=== PATIENT | female | born 1970 | race Caucasian/White ===

== ENCOUNTER → 2018-07-15 | Outpatient (CLI) | payer OTHER ==
--- NOTE | 2018-07-15 13:39 | Diagnostic Imaging Report ---
EXAM: BONE MINERAL DENSITY HISTORY: Bone mineralization evaluation COMPARISON: None DISCUSSION: Evaluation of the left hip and lumbar spine was performed utilizing DEXA Hologic bone densitometer. The study is technically adequate. Left hip femoral neck bone mineral density: 0.95 g/cm2, T-score is 1.0, Z-score is 1.6. Left hip total bone mineral density: 1.15 g/cm2, T-score is 1.7, Z-score is 2.1. Lumbar spine total bone mineral density: 1.02 gm/cm2, T-score is -0.2, Z-score is 0.4. Impression: Bone mineralization by WHO Classification is normal, the fracture risk is not increased. Signed by: Dr. Haider Nguyen M.D. on 07/15/2018 1:36 PM
== END ==
LOC: MAMMO 12:11
PROVIDERS: ATTEND Internal Medicine
DX: Z12.31 Encounter for screening mammogram for malignant neoplasm of breast (principal); M89.9 Disorder of bone, unspecified
CPT/HCPCS: 77067; 77080; 81025

== ENCOUNTER 2018-08-06 18:27 | Emergency (ER) | payer OTHER ==
[~2018-08-06] VITALS: Ht 157.5 cm; Wt 108.0 kg
--- OUTSIDE RECORDS SUMMARY | 2018-08-06 18:30 | XMS REPORT ---
Author Author [facility] Address Unknown Phone Unavailable Care Team Providers Care Ferruler Name Role Phone NACHO LARKIN Unavailable Unavailable SYDNIE HICKEY Unavailable Unavailable Problems This patient has no known problems. Allergies, Adverse Reactions, Alerts This patient has no known allergies or adverse reactions. Medications This patient has no known medications. Results Test Description Test Time Test Comments Text Results Atomic Results Result Comments MAMMOGRAPHY DIGITAL SCR BILAT 2018-07-15 14:52:00 [place] [address] Patient Name: TRISHA DAMON MR #: [id number] : 1970 Age/Sex: 48/F Req #: [id number] Adm Physician: Ordered by: NACHO LARKIN MD Report #: [id number] Location: MAMMO Room/Bed: Procedure: [id number] MG/MAMMOGRAPHY DIGITAL SCR BILAT Exam Date: 07/15/18 Exam Time: 1247 REPORT STATUS: Signed #[id number] - [id number] #BILATERAL DIGITAL SCREENING MAMMOGRAM WITH CAD: 07/15/2018 CLINICAL: Routine screening. No prior exams were available for comparison. Current study contains 4 films. There are scattered fibroglandular elements in both breasts. Current study was also evaluated with a Computer Aided Detection (CAD) system. There are benign calcifications in both breasts. There also are post operative findings i n the right breast with a scar marker present. No significant masses, calcifications, or other findings are seen in either breast. IMPRESSION: BENIGN There is no mammographic evidence of malignancy. A 1 year screening mammogram is recommended. The patient will be notified by letter of the results. Yesy Muñoz Jr., D.O. cw/:08/01/2018 10:16:53 [employer] Assessment: Adeola PACHECO)(Becky), [facility] letter sent: Normal Exam Mammogram BI-RADS: 2 Benign Dictated By: YESY MUÑOZ DO 1016 Transcribed By: LEONEL on 08/01/18 1016 COPY TO: NACHO LARKIN MD BONE DXA DUAL ENERGY 2018-07-15 13:35:00 [place] [address] Patient Name: TRISHA DAMON MR #: [id number] : 1970 Age/Sex: 47/F Req #: [id number] Adm Physician: Ordered by: NACHO LARKIN MD Report #: [id number] Location: MAMMO Room/Bed: Procedure: [id number] DX/BONE DXA DUAL ENERGY Exam Date: Exam Time: REPORT STATUS: Signed EXAM: BONE MINERAL DENSITY HISTORY: Bone mineralization evaluation COMPARISON: None DISCUSSION: Evaluation of the left hip and lumbar spine was performed utilizing DEXA Hologic bone densitometer. The study is technically adequate. Left hip femoral neck bone mineral density: 0.95 g/cm2, T-score is 1.0, Z-score is 1.6. Left hip total bone mineral density: 1.15 g/cm2, T-score is 1.7, Z-score is 2.1. Lumbar spine total bone mineral density: 1.02 gm/cm2, T-score is -0.2, Z-score is 0.4. Impression: Bone mineralization by WHO Classification is normal, the fracture risk is not increased. Signed by: Dr. Vu Crawford M.D. on 07/15/2018 1:36 PM Dictated By: VU CRAWFORD MD Transcribed By: DYLAN on 07/15/186 COPY TO: NACHO LARKIN MD POCT-GLUCOSE METER 2016-06-04 11:13:00 POC-GLUCOSE METER (BEAKER) (test djii=2107) 148 mg/dL 70-110 TESTED AT [address] [address] URINE [id number] 12:37:00* Test Item Value Reference Range Comments CULTURE (BEAKER) (test ekkb=8430) ESCHERICHIA COLI >100,000 col/mL Escherichia coli Amikacin (test code=1) Ampicillin + Sulbactam (test code=6) Aztreonam (test code=32) Cefepime (test code=51) Cefoxitin (test code=68) Ceftazidime (test code=27) Ceftriaxone (test code=52) Ertapenem (test code=38) Gentamicin (test code=18) Levofloxacin (test code=22) Meropenem (test code=34) Nitrofurantoin (test code=23) Piperacillin + Tazobactam (test code=29) Tetracycline (test code=2) Tobramycin (test code=25) Trimethoprim + Sulfamethoxazole (test code=47) CULTURE (BEAKER) (test weck=980213) 10-19,000 col/mL Beta-hemolytic streptococcus group B, by serological groupingIf this patient is , please refer to ACOG guidelines for appropriate screening and management of colonized women. BASIC METABOLIC [id number] 18:00:00* Test Item Value Reference Range Comments SODIUM (BEAKER) (test imlm=219) 140 meq/L 136-145 POTASSIUM (BEAKER) (test zpjz=460) 3.4 meq/L 3.5-5.1 CHLORIDE (BEAKER) (test jura=870) 104 meq/L 98-107 CO2 (BEAKER) (test qbgt=324) 26 meq/L 22-29 BLOOD UREA NITROGEN (BEAKER) (test mpte=819) 11 mg/dL 7-21 CREATININE (BEAKER) (test ewhb=131) 0.78 mg/dL 0.57-1.25 GLUCOSE RANDOM (BEAKER) (test zitx=618) 134 mg/dL 70-105 CALCIUM (BEAKER) (test wvfr=559) 9.2 mg/dL 8.4-10.2 EGFR (BEAKER) (test ewpi=4288) 80 mL/min/1.73 sq m ESTIMATED GFR IS NOT ACCURATE CREATININE CLEARANCE IN PREDICTING GLOMERULAR FILTRATION RATE. ESTIMATED GFR IS NOT APPLICABLE FOR DIALYSIS PATIENTS. [id number] 17:45:00* Test Item Value Reference Range Comments PARTIAL THROMBOPLASTIN TIME (BEAKER) (test zxls=517) 27.4 seconds 22.5-36.0 PROTHROMBIN TIME/[id number] 17:44:00* Test Item Value Reference Range Comments PROTIME (BEAKER) (test ygvu=682) 13.2 seconds 11.7-14.7 INR (BEAKER) (test vnhj=002) 1.0 <=5.9 RECOMMENDED COUMADIN/WARFARIN INR THERAPY RANGESSTANDARD DOSE: 2.0 - 3.0 Inclu gabriel: PROPHYLAXIS for venous thrombosis, systemic embolization; TREATMENT for denae ous thrombosis and/or pulmonary embolus.HIGH RISK: Target INR is 2.5-3.5 for pat ients with mechanical heart valves.URINALYSIS W/ [id number] 17:40:00 * Test Item Value Reference Range Comments COLOR (BEAKER) (test oahk=873) [place] CLARITY (BEAKER) (test mnsg=077) Hazy SPECIFIC GRAVITY UA (BEAKER) (test znzl=525) 1.015 1.001-1.035 PH UA (BEAKER) (test xpyz=890) 5.0 5.0-8.0 PROTEIN UA (BEAKER) (test lnio=029) 30 mg/dL Negative GLUCOSE UA (BEAKER) (test vypv=183) Negative Negative KETONES UA (BEAKER) (test lpms=496) Negative Negative BILIRUBIN UA (BEAKER) (test vsdw=620) Negative Negative BLOOD UA (BEAKER) (test uudp=044) Large Negative NITRITE UA (BEAKER) (test jwck=796) Negative Negative LEUKOCYTE ESTERASE UA (BEAKER) (test jzem=367) Large Negative UROBILINOGEN UA (BEAKER) (test sbjb=749) 0.2 mg/dL 0.2-1.0 RBC UA (BEAKER) (test dkzt=520) > /HPF WBC UA (BEAKER) (test raar=088) > /HPF BACTERIA (BEAKER) (test fmmu=329) Occasional SQUAMOUS EPITHELIAL (BEAKER) (test diuo=686) 4 /HPF SOURCE(BEAKER) (test zgdb=5643) SCREEN, [id number] 17:39:00* Test Item Value Reference Range Comments TEST URINE (BEAKER) (test uytw=513) Negative CBC W/PLT COUNT & AUTO [id number] 17:34:00* Test Item Value Reference Range Comments WHITE BLOOD CELL COUNT (BEAKER) (test efki=484) 8.5 K/ L 4.0-10.0 RED BLOOD CELL COUNT (BEAKER) (test mrus=167) 4.23 M/ L 4.00-5.00 HEMOGLOBIN (BEAKER) (test hdqe=593) 13.5 GM/DL 12.0-15.0 HEMATOCRIT (BEAKER) (test tkvj=982) 38.4 % 36.0-45.0 MEAN CORPUSCULAR VOLUME (BEAKER) (test ozdc=334) 90.7 fL 82.0-99.0 MEAN CORPUSCULAR HEMOGLOBIN (BEAKER) (test fllc=492) 31.9 pg 27.0-33.0 MEAN CORPUSCULAR HEMOGLOBIN CONC (BEAKER) (test msqp=366) 35.2 GM/DL 32.0-36.0 RED CELL DISTRIBUTION WIDTH (BEAKER) (test qmmw=212) 12.9 % 10.3-14.2 PLATELET COUNT (BEAKER) (test wylg=160) 268 K/CU MM 150-430 MEAN PLATELET VOLUME (BEAKER) (test qbvt=420) 6.7 fL 6.5-10.5 NUCLEATED RED BLOOD CELLS (BEAKER) (test vpqp=751) 0 /100 WBC 0-0 NEUTROPHILS RELATIVE PERCENT (BEAKER) (test qnyy=478) 62 % LYMPHOCYTES RELATIVE PERCENT (BEAKER) (test sxgz=405) 31 % MONOCYTES RELATIVE PERCENT (BEAKER) (test rzov=644) 5 % EOSINOPHILS RELATIVE PERCENT (BEAKER) (test sslv=059) 2 % BASOPHILS RELATIVE PERCENT (BEAKER) (test pdvk=481) 1 % NEUTROPHILS ABSOLUTE COUNT (BEAKER) (test parv=803) 5.23 K/ L 1.80-8.00 LYMPHOCYTES ABSOLUTE COUNT (BEAKER) (test qytv=912) 2.59 K/ L 1.48-4.50 MONOCYTES ABSOLUTE COUNT (BEAKER) (test lgej=732) 0.39 K/ L 0.00-1.30 EOSINOPHILS ABSOLUTE COUNT (BEAKER) (test hxtk=004) 0.19 K/ L 0.00-0.50 BASOPHILS ABSOLUTE COUNT (BEAKER) (test uhck=110) 0.07 K/ L 0.00-0.20 0.00
--- OUTSIDE RECORDS SUMMARY | 2018-08-06 18:30 | XMS REPORT | Clinical Summary ---
Author Author [facility] Apps[facility]epWe[facility] HospitalScintera Networks Organization [facility] Address Unknown Phone Unavailable Care Team Providers Care Glue Maker Name Role Phone Radha Peters PCP Allergies No Known Allergies Medications End Date Status Medication Sig Dispensed Refills Start Date Active venlafaxine (EFFEXOR-XR) Take 150 mg 0 75 MG 24 hr capsule by mouth daily. Active metFORMIN (GLUCOPHAGE) Take 1,000 mg 0 500 MG tablet by mouth daily. Active losartan (COZAAR) 25 MG Take 25 mg by 0 tablet mouth daily. Active hydroCHLOROthiazide Take 12.5 mg 0 (HYDRODIURIL) 12.5 MG by mouth tablet daily. Active methocarbamol (ROBAXIN) Take 750 mg 0 750 MG tablet by mouth 3 (three) times daily. Active gabapentin (NEURONTIN) Take 300 mg 0 300 MG capsule by mouth 4 (four) times daily. Active atorvastatin (LIPITOR) 80 Take 80 mg by 0 MG tablet mouth daily. Active traZODone (DESYREL) 50 MG Take 50 mg by 0 tablet mouth nightly. Active CYANOCOBALAMIN, VITAMIN Take by 0 B-12, (VITAMIN B-12 ORAL) mouth. Active multivitamin capsule Take 1 0 capsule by mouth daily. Active CALCIUM CARBONATE/VITAMIN Take by 0 D3 (CALCIUM+D ORAL) mouth. Active FERROUS FUMARATE (IRON Take by 0 ORAL) mouth. Active BIOTIN ORAL Take by 0 mouth. Active ciprofloxacin HCl (CIPRO) Take 500 mg 0 500 MG tablet by mouth daily. Active Problems Not on file Social History Date Tobacco Use Types Packs/Day Years Used Never Smoker Alcohol Use Drinks/Week oz/Week Comments Yes rarely Sex Assigned at Date Recorded Not on file Industry Job Start Date Occupation Not on file Not on file Not on file Travel End Travel History Travel Start No recent travel history available. Last Filed Vital Signs Not on file Plan of Treatment Not on file Implants Device Identifier Shelf Expiration Date Model / Serial / Lot Implanted Type Area Manufactur er 10/17/2017 [id number] / / [id number] Set Stent Injection 6x24cm Uro Stent Left: Ureter BOSTON [id number] - [id number] SCI:ONCOLO Implanted: Qty: 1 on 06/04/2016 by MARIELLA Santos, Fawad Arenas MD Results Not on fileafter 08/05/2017 Insurance Payer Benefit Subscriber ID Type Phone Address Plan / Group AETNA - MGD CARE AETNA HMO xxxxxxxxx HMO/POS POS QPOS
--- OUTSIDE RECORDS SUMMARY | 2018-08-06 18:30 | XMS REPORT | Clinical Summary ---
Author Author [facility] [employer] Organization [facility] Address Unknown Phone Unavailable Care Team Providers Care Electronic Assembler Name Role Phone Nereyda Riddle MD PCP Allergies No Known Allergies Medications End Date Status Medication Sig Dispensed Refills Start Date Active venlafaxine (EFFEXOR) 75 Take 75 mg by 0 MG tablet mouth 2 (two) times a day. Active metFORMIN (GLUCOPHAGE) Take 500 mg 0 500 mg tablet by mouth 2 (two) times a day with meals. Active losartan (COZAAR) 25 MG Take 25 mg by 0 tablet mouth daily. Active hydroCHLOROthiazide Take 12.5 mg 0 (HYDRODIURIL) 12.5 MG by mouth tablet daily. Active gabapentin (NEURONTIN) Take 300 mg 0 300 mg capsule by mouth 3 (three) times a day. Active methocarbamol (ROBAXIN) Take 750 mg 0 750 MG tablet by mouth 4 (four) times a day. Active HYDROcodone-acetaminophen Take 1 tablet 0 (NORCO) 7.5-325 mg per by mouth tablet every 6 (six) hours as needed for moderate pain. Active FERROUS SULFATE, DRIED Take by 0 (IRON, DRIED, ORAL) mouth. Active biotin 1 mg tablet Take 1,000 0 mcg by mouth 3 (three) times a day. Active multivitamin with Take 1 tablet 0 minerals tablet by mouth daily. Active ASCORBIC ACID/VITAMIN Take by 0 E/BIOTIN (HAIR, SKIN, mouth. NAILS WITH BIOTIN ORAL) Active CALCIUM CARBONATE/VITAMIN Take by 0 D3 (CALTRATE 600 + D mouth. ORAL) Active cyanocobalamin 250 MCG Take 250 mcg 0 tablet by mouth daily. Active nitrofurantoin Take 100 mg 0 (MACRODANTIN) 100 MG by mouth 2 capsule (two) times a day. Active atorvastatin (LIPITOR) 80 Take 80 mg by 0 MG tablet mouth daily. Active Problems Not on file Social History Date Tobacco Use Types Packs/Day Years Used Never Smoker Alcohol Use Drinks/Week oz/Week Comments No Sex Assigned at Date Recorded Not on file Industry Job Start Date Occupation Not on file Not on file Not on file Travel End Travel History Travel Start No recent travel history available. Last Filed Vital Signs Not on file Plan of Treatment Health Maintenance Due Date Last Done Comments INFLUENZA VACCINE 09/11/2018 Results Not on fileafter 08/05/2017 Insurance Type Payer Benefit Subscriber ID Effective Phone Address Plan / Dates Group PPO AETNA AETNA PPO xxxxxxxxx 2012-P OPEN resent CHOICE HMO AETNA AETNA xxxxxxxxx 2012-P HMO,POS,EP resent O, MC/EC Advance Directives Patient has advance care planning documents on file. For more information, sabrina potts contact: Alex Machado [address] [place] [address]
[2018-08-06] MEDS ORDERED: KETOROLAC TROMETHAMINE 60 MG/2 ML VIAL IM ONE (21:30)
--- NOTE | 2018-08-06 21:30 | Diagnostic Imaging Report ---
EXAMINATION: CT of the abdomen and pelvis without contrast. TECHNIQUE: Helical CT images of the abdomen and pelvis were performed from the lung bases to the lesser trochanters. No intravenous contrast was given per renal stone protocol. Coronal and sagittal reformatted images were obtained. Dose modulation, iterative reconstruction, and/or weight based adjustment of the mA/kV was utilized to reduce the radiation dose to as low as reasonably achievable. COMPARISON: None. CLINICAL HISTORY:Flank pain DISCUSSION: ABSENCE OF INTRAVENOUS CONTRAST DECREASES SENSITIVITY FOR DETECTION OF FOCAL LESIONS AND VASCULAR PATHOLOGY. ABDOMEN/PELVIS: LOWER THORAX: Unremarkable. HEPATOBILIARY:No focal hepatic lesions. No biliary ductal dilation. The gallbladder is normal. SPLEEN: No splenomegaly. PANCREAS: No focal masses or ductal dilatation. ADRENALS: No adrenal nodules. KIDNEYS/URETERS: No hydronephrosis, stones, or solid mass lesions. PELVIC ORGANS/BLADDER: The bladder is normal. PERITONEUM/RETROPERITONEUM: No free air or fluid. LYMPH NODES: No intra-abdominal,retroperitoneal, pelvic or inguinal lymphadenopathy. VESSELS: Limited evaluation. GI TRACT: Postsurgical change to the stomach. No obstruction. Appendix normal. BONES AND SOFT TISSUES: Pars defect L5. Lower anterior abdominal wall hernia containing fat and loop of small bowel. IMPRESSION: No acute CT finding. Signed by: Dr. Haider Nguyen M.D. on 08/06/2018 9:27 PM
[2018-08-20] MEDS ORDERED: VENLAFAXINE HCL75 MG PO (13:27)
[2018-08-20] MEDS ORDERED: GABAPENTIN300 MG PO (13:28)
[2018-08-20] MEDS ORDERED: METHOCARBAMOL750 MG PO (13:28)
[2018-08-20] MEDS ORDERED: METFORMIN HCL500 MG PO (13:29)
[2018-08-20] MEDS ORDERED: GLIMEPIRIDE2 MG PO (13:29)
[2018-08-20] MEDS ORDERED: HYDROCHLOROTHIA25 MG PO (13:30)
[2018-08-20] MEDS ORDERED: MICARDIS40 MG PO (13:30)
[2018-08-20] MEDS ORDERED: FERROUS SULFAT325 M1 PO (13:31)
[2018-08-20] MEDS ORDERED: HYDROXYZINE HCL25 MG PO (13:31)
[2018-08-20] MEDS ORDERED: TRAZODONE HCL50 MG PO (13:31)
[2018-08-20] MEDS ORDERED: B COMPLEX1 EACH PO (13:32)
[2018-08-20] MEDS ORDERED: BIOTIN1 MG PO (13:32)
[2018-08-20] MEDS ORDERED: MULTI-VITAMIN1 EACH PO (13:33)
[2018-08-20] MEDS ORDERED: CALCIUM + VITA1 EACH PO (13:33)
== END 2018-08-06 21:29 | disposition home or self-care (01) ==
LOC: FSED 18:27
DX: S39.012A Strain of muscle, fascia and tendon of lower back, initial encounter (principal); G89.29 Other chronic pain; I10 Essential (primary) hypertension; E11.9 Type 2 diabetes mellitus without complications; X58.XXXA Exposure to other specified factors, initial encounter
CPT/HCPCS: 74176; 81003; 81025; 99283; J1885

== ENCOUNTER → 2018-08-23 | Day surgery (SDC) | payer OTHER ==
[~2018-08-23] MED LIST: B COMPLEX1 EACH PO; BIOTIN1 MG PO; CALCIUM + VITA1 EACH PO; FENTANYL CITRATE/PF 100MCG/2 ML INJ ONE; FERROUS SULFAT325 M1 PO; GABAPENTIN300 MG PO; GLIMEPIRIDE2 MG PO; HYDROCHLOROTHIA25 MG PO; HYDROXYZINE HCL25 MG PO; HYOSCYAMINE 0.125 MG TAB ONE; METFORMIN HCL500 MG PO; METHOCARBAMOL750 MG PO; MICARDIS40 MG PO; MIDAZOLAM HCL 2 MG/2 ML VIAL ONE; MULTI-VITAMIN1 EACH PO; TRAZODONE HCL50 MG PO; VENLAFAXINE HCL75 MG PO
--- OUTSIDE RECORDS SUMMARY | 2018-08-23 11:26 | XMS REPORT | Clinical Summary ---
Author Author [facility]itelNorth Canyon Medical CenterDidLog Organization [facility] Address Unknown Phone Unavailable Care Team Providers Care Fitness Manager Name Role Phone Radha Peters PCP Allergies [...] Lot Implanted Type Area Manufactur er 10/17/2017 [id number] / / [id number] Set Stent Injection 6x24cm Uro Stent Left: Ureter [employer]ON [id number] - [id number] SCI:ONCOLO Implanted: Qty: 1 on 06/04/2016 by MARIELLA Santos, Fawad Arenas MD Results Not on fileafter 08/22/2017 Insurance Payer Benefit Subscriber ID Type Phone Address Plan / Group AETNA - MGD CARE AETNA HMO xxxxxxxxx HMO/POS POS QPOS
--- OUTSIDE RECORDS SUMMARY | 2018-08-23 11:26 | XMS REPORT | Clinical Summary ---
Author Author [facility] [employer] Organization [facility] Address Unknown Phone Unavailable Care Team Providers Care Forest Fire Prevention Manager Name Role Phone Nereyda Riddle MD PCP [...] INFLUENZA VACCINE 09/11/2018 Results Not on fileafter 08/22/2017 Insurance Type Payer Benefit Subscriber ID Effective Phone Address Plan / Dates Group PPO AETNA AETNA PPO xxxxxxxxx 2012-P OPEN resent CHOICE HMO AETNA AETNA xxxxxxxxx 2012-P HMO,POS,EP resent O, MC/EC Advance Directives Patient has advance care planning documents on file. For more information, sabrina potts contact: Alex Machado [address] [place] [address]
[2018-08-23 12:43] LABS: WBC,FECAL (FECAL LACTOFERRIN) POSITIVE (NEGATIVE)
--- NOTE | 2018-08-23 12:59 | Operative Report ---
DATE OF PROCEDURE: 08/23/2018 SURGEON: Camacho Powell MD PROCEDURES: EGD with biopsies and colonoscopy with biopsies. INDICATIONS FOR EGD: Acid reflux, bloating. INDICATIONS FOR COLONOSCOPY: Lower abdominal pain, diarrhea, intermittent history of colon polyps. MEDICATIONS: The patient was done under MAC, please see anesthesiologist's note. PROCEDURE IN DETAIL: With the patient in left lateral decubitus position, a flexible fiberoptic Olympus gastroscope was introduced into the esophagus under direct visualization without any difficulty. There was some patchy erythema noted in distal esophagus. The scope was then advanced with ease into the stomach and the patient is status post gastric sleeve. The mucosa overlying the body as well as the antrum revealed some diffuse erythema and moderate edema and biopsies were obtained, sent to stain for H. pylori. The pylorus was of normal contour and shape, it was intubated with ease and the scope was advanced all the way to the second portion of the duodenum. The scope was then withdrawn slowly and biopsies were obtained from the second portion as well as the duodenal bulb to rule out sprue. The scope was then withdrawn back into the stomach and retroflexed and some postoperative changes were noted. The scope was then straightened out, it was subsequently withdrawn, and the patient tolerated the procedure well. IMPRESSION: 1. Distal esophagitis. 2. Status post gastric sleeve. Gastritis biopsied. Biopsies sent to stain for Helicobacter pylori. 3. Rule out sprue. PLAN: Follow up histology. Initiate Protonix 40 mg one p.o. q.a.m. before meals. COLONOSCOPY: The patient was then turned around and after adequate lubrication of the anal canal, a flexible fiberoptic Olympus colonoscope was inserted into the rectum with ease and advanced all the way to the cecum. Mucosa overlying the cecum appeared to be within normal limits. The ileocecal valve was intubated and the scope was advanced into the terminal ileum. Biopsies were obtained. The scope was then withdrawn back into the colon. It was then withdrawn slowly and mucosa overlying the ascending and the transverse appeared to be within normal limits. Mild inflammatory changes were noted in the descending, sigmoid as well as the rectum and random biopsies were obtained. The scope was then retroflexed into the distal rectum and the area around the dentate line was examined carefully and appeared to be within normal limits. The scope was then straightened out, it was subsequently withdrawn after securing an adequate stool specimen that was sent for the appropriate stool studies. The patient tolerated the procedure well. IMPRESSION: 1. Mild patchy left-sided colitis. 2. Proctitis, low-grade. PLAN: Follow up histology. Follow up stool studies. Initiate Bentyl 10 mg one p.o. t.i.d. Camacho Powell MD [facility] /[id number] cc: Joe Pérez MD
[2018-08-23 15:16] LABS: C DIFFICILE TOXIN A&B AMP PROB NEGATIVE (NEGATIVE)
--- OUTSIDE RECORDS SUMMARY | 2018-08-25 15:07 | XMS REPORT | Clinical Summary ---
Author Author ROBLES [facility] RebelSyringa General HospitalSynergos Organization [facility] Address Unknown Phone Unavailable Care Team Providers Care Tint Layer Name Role Phone Radha Peters PCP Allergies [...] Lot Implanted Type Area Manufactur er 10/17/2017 [id number] / / [id number] Set Stent Injection 6x24cm Uro Stent Left: Ureter [employer]ON [id number] - [id number] [employer]:ONCOLO Implanted: Qty: 1 on 06/04/2016 by MARIELLA Santos, Fawad Arenas MD Results Not on fileafter 08/24/2017 Insurance Payer Benefit Subscriber ID Type Phone Address Plan / Group AETNA - MGD CARE AETNA HMO xxxxxxxxx HMO/POS POS QPOS
--- OUTSIDE RECORDS SUMMARY | 2018-08-25 15:07 | XMS REPORT | Clinical Summary ---
Author Author [facility] Organization [facility] Address Unknown Phone Unavailable Care Team Providers Care Credit Collection Associate Name Role Phone Nereyda Riddle MD PCP [...] INFLUENZA VACCINE 09/11/2018 Results Not on fileafter 08/24/2017 Insurance Type Payer Benefit Subscriber ID Effective Phone Address Plan / Dates Group PPO AETNA AETNA PPO xxxxxxxxx 2012-P OPEN resent CHOICE HMO AETNA AETNA xxxxxxxxx 2012-P HMO,POS,EP resent O, MC/EC Advance Directives Patient has advance care planning documents on file. For more information, sabrina potts contact: Alex Machado [address] [place] [address]
== END | disposition home or self-care (01) ==
LOC: OR 08:51
PROVIDERS: ATTEND Internal Medicine Gastroenterology
DX: K29.70 Gastritis, unspecified, without bleeding (principal); K51.50 Left sided colitis without complications; K21.9 Gastro-esophageal reflux disease without esophagitis; K20.9 Esophagitis, unspecified; K44.9 Diaphragmatic hernia without obstruction or gangrene; Z98.84 Bariatric surgery status; K62.89 Other specified diseases of anus and rectum; E66.01 Morbid (severe) obesity due to excess calories; E11.9 Type 2 diabetes mellitus without complications; F32.9 Major depressive disorder, single episode, unspecified; F41.9 Anxiety disorder, unspecified; Z01.810 Encounter for preprocedural cardiovascular examination; Z79.84 Long term (current) use of oral hypoglycemic drugs; Z68.30 Body mass index [BMI] 30.0-30.9, adult; Z80.0 Family history of malignant neoplasm of digestive organs
CPT/HCPCS: 36415; 43239; 45380; 81025; 82948; 83630; 83993; 87045; 87177; 87328; 87493; 93005; J2250; J3010

== ENCOUNTER → 2021-10-25 | Outpatient (CLI) | payer BC ==
[~2021-10-25] MED LIST changes: -FENTANYL CITRATE/PF 100MCG/2 ML INJ ONE; -HYOSCYAMINE 0.125 MG TAB ONE; -MIDAZOLAM HCL 2 MG/2 ML VIAL ONE
== END ==
LOC: MRI 07:52
DX: Z12.31 Encounter for screening mammogram for malignant neoplasm of breast (principal); M54.17 Radiculopathy, lumbosacral region
CPT/HCPCS: 72148; 77067

== ENCOUNTER 2021-12-05 13:42 | Emergency (ER) | payer BC, OTHER ==
[~2021-12-05] VITALS: Ht 157.5 cm; Wt 108.0 kg
[2021-12-05] MEDS ORDERED: IBUPROFEN 600 MG TAB PO STA (13:57)
== END 2021-12-05 15:37 | disposition home or self-care (01) ==
LOC: ER 13:53
DX: S90.31XA Contusion of right foot, initial encounter (principal); W20.8XXA Other cause of strike by thrown, projected or falling object, initial encounter; Y92.89 Other specified places as the place of occurrence of the external cause; E11.9 Type 2 diabetes mellitus without complications; E78.5 Hyperlipidemia, unspecified; Z87.442 Personal history of urinary calculi; Z98.84 Bariatric surgery status
CPT/HCPCS: 99283